=== PATIENT | male | born 1955 | race Caucasian/White ===

== ENCOUNTER 2017-02-27 17:39 | Emergency (ER) | payer MEDICARE ==
[~2017-02-27] VITALS: Ht 182.9 cm; Wt 134.7 kg
[~2017-02-27 17:39] MED LIST: ASPI325T PO; CYCL-36 PO; OXYC-360 PO; Z.0.NO CURRENT MEDS
[2017-02-27 17:48] VITALS: BP 139/90; PULSE 105; RESP 20; TEMP 97.9; O2SAT 97
[2017-02-27] MEDS ORDERED: ASPI-183 PO (18:22)
--- NOTE | 2017-02-27 18:49 | PD ---
HPI Chief Complaint: Lump, Cyst, Hernia Time Seen by Provider: 18:46 Travel History International Travel<30 days: No Contact w/Intl Traveler<30days: No Traveled to known affect area: No History of Present Illness HPI 61-year-old male presents with one year history of lump to his abdomen that has progressively gotten bigger and more painful. He states over the past week the pain has gotten constant and sharp. He states he is scheduled an appointment with his 's physician but they canceled that given the doctor had an issue so he elected to come here today given it was getting unbearable. He denies any concurrent complaints including vomiting, diarrhea, constipation or other concurrent concerns. PFSH Past Medical History Medical History: Denies Significant Hx Diminished Hearing: No Immunizations Current: Yes Tetanus Vaccination: > 5 Years Influenza Vaccination: No Past Surgical History Cholecystectomy: Yes Social History Alcohol Use: No Tobacco Use: Yes (1 ppd) Substance Use: No Allergies-Medications (Allergen,Severity, Reaction): Coded Allergies: No Known Allergies (Verified Adverse Reaction, Unknown, 02/27/17) Reported Meds & Prescriptions Reported Meds & Active Scripts Active Reported Aspirin 325 Mg Tab 325 Mg PO DAILY Review of Systems Except as stated in HPI: all other systems reviewed are Neg Physical Exam Narrative GENERAL: Well-nourished, well-developed patient. Uncomfortable SKIN: Warm and dry. HEAD: Normocephalic and atraumatic. EYES: No injection or drainage. ENT: No nasal drainage noted. NECK: Supple, trachea midline. CARDIOVASCULAR: Regular rate and rhythm RESPIRATORY: No increased effort. No accessory muscle use. GASTROINTESTINAL: Abdomen soft, tender right upper quadrant with what appears to be a incisional hernia but difficult exam given patient discomfort, nondistended. EXTREMITIES: No edema. NEUROLOGICAL: Awake and alert. Motor and sensory grossly within normal limits. Normal speech. Data Data Last Documented VS Vital Signs Date Time Temp Pulse Resp B/P (MAP) Pulse Ox O2 Delivery O2 Flow Rate FiO2 02/27/17 17:48 97.9 105 20 139/90 (106) 97 Orders Orders Complete Blood Count With Diff (02/27/17 18:46) Comprehensive Metabolic Panel (02/27/17 18:46) Lipase (02/27/17 18:46) Ct Abd/Pel W Iv Contrast(Rout) (02/27/17 ) Iv Access Insert/Monitor (02/27/17 18:46) Oximetry (02/27/17 18:46) MDM Medical Decision Making Medical Screen Exam Complete: Yes Emergency Medical Condition: Yes Medical Record Reviewed: Yes (past history reviewed) Differential Diagnosis Hernia, stone, gastritis, mass Narrative Course Will check blood work, CT scan Physician Communication Physician Communication Oncoming physician to follow workup and reevaluate Winnie Reynolds MD Feb 27, 2017 18:49
[2017-02-27 19:00] VITALS: BP 128/77; PULSE 95; RESP 18; O2SAT 95
[2017-02-27 19:12] LABS: WHITE BLOOD COUNT 12.6 TH/MM3 (4.0-11.0)
[2017-02-27 19:13] LABS: AUTOMATED NEUTROPHIL # 7.6 TH/MM3 (1.8-7.7); BASOPHIL # 0.5 TH/MM3 (0-0.2); BASOPHIL % 3.7 % (0.0-2.0); EOSINOPHIL # 0.2 TH/MM3 (0-0.4); EOSINOPHIL % 1.4 % (0.0-4.0); LYMPH % 28.5 % (9.0-44.0); LYMPHOCYTE # 3.6 TH/MM3 (1.0-4.8); MEAN CELL VOLUME 91.3 FL (80.0-100.0); MEAN CORPUSCULAR HEMOGLOBIN 31.2 PG (27.0-34.0); MEAN CORPUSCULAR HGB CONC 34.1 % (32.0-36.0); MONO % 5.9 % (0.0-8.0); NEUT % 60.5 % (16.0-70.0); PLATELET COUNT 293 TH/MM3 (150-450); RED BLOOD COUNT 5.03 MIL/MM3 (4.50-5.90); RED CELL DISTRIBUTION WIDTH 12.8 % (11.6-17.2)
[2017-02-27 19:14] LABS: HEMO FLAGS DIFF FINAL
[2017-02-27 19:23] LABS: CHLORIDE 100 MEQ/L (98-107); POTASSIUM 3.9 MEQ/L (3.5-5.1); SODIUM (NA) 135 MEQ/L (136-145)
[2017-02-27 19:27] LABS: ANION GAP 10 MEQ/L (5-15); BICARBONATE 25.3 MEQ/L (21.0-32.0); BLOOD UREA NITROGEN 11 MG/DL (7-18)
[2017-02-27 19:30] LABS: ALT (GPT) 20 U/L (12-78); AST (GOT) 8 U/L (15-37); GLOMERULAR FILTRATION RATE 104 ML/MIN (>89)
[2017-02-27 19:31] LABS: TOTAL BILIRUBIN ADULT 0.7 MG/DL (0.2-1.0)
[2017-02-27 19:33] LABS: ALKALINE PHOSPHATASE 84 U/L (45-117)
[2017-02-27] MEDS ORDERED: IOHEXOL 350 MG/ML 10 ML VIAL (for RAD DIAG) IVCONTRAST ONE (20:06)
[2017-02-27 20:45] VITALS: BP 119/75; PULSE 97; RESP 18; O2SAT 95
[2017-02-27] MEDS ORDERED: KETOROLAC TROMETHAMINE 30 MG/ML (IVP) VIAL IV PUSH ONE (21:00)
--- NOTE | 2017-02-27 21:08 | PD ---
Physical Exam Date Seen by Provider: Feb 27, 2017 Time Seen by Provider: 20:00 Narrative re exam pt has focal right upper quad area pain no hematoma no bruise or sign of trauma, CT reading pending Data Data Last Documented VS Vital Signs Date Time Temp Pulse Resp B/P (MAP) Pulse Ox O2 Delivery O2 Flow Rate FiO2 02/27/17 21:58 98 18 123/78 (93) 95 02/27/17 20:45 Room Air 02/27/17 17:48 97.9 Orders Orders Complete Blood Count With Diff (02/27/17 18:46) Comprehensive Metabolic Panel (02/27/17 18:46) Lipase (02/27/17 18:46) Ct Abd/Pel W Iv Contrast(Rout) (02/27/17 ) Iv Access Insert/Monitor (02/27/17 18:46) Oximetry (02/27/17 18:46) Iohexol 350 Inj (Omnipaque 350 Inj) (02/27/17 20:06) Ketorolac Inj (Toradol Inj) (02/27/17 21:00) Ed Discharge Order (02/27/17 21:50) Labs Laboratory Tests Test 02/27/17 19:00 White Blood Count 12.6 TH/MM3 Red Blood Count 5.03 MIL/MM3 Hemoglobin 15.7 GM/DL Hematocrit 46.0 % Mean Corpuscular Volume 91.3 FL Mean Corpuscular Hemoglobin 31.2 PG Mean Corpuscular Hemoglobin Concent 34.1 % Red Cell Distribution Width 12.8 % Platelet Count 293 TH/MM3 Mean Platelet Volume 9.0 FL Neutrophils (%) (Auto) 60.5 % Lymphocytes (%) (Auto) 28.5 % Monocytes (%) (Auto) 5.9 % Eosinophils (%) (Auto) 1.4 % Basophils (%) (Auto) 3.7 % Neutrophils # (Auto) 7.6 TH/MM3 Lymphocytes # (Auto) 3.6 TH/MM3 Monocytes # (Auto) 0.7 TH/MM3 Eosinophils # (Auto) 0.2 TH/MM3 Basophils # (Auto) 0.5 TH/MM3 CBC Comment DIFF FINAL Differential Comment Blood Urea Nitrogen 11 MG/DL Creatinine 0.76 MG/DL Random Glucose 265 MG/DL Total Protein 7.5 GM/DL Albumin 3.2 GM/DL Calcium Level 8.8 MG/DL Alkaline Phosphatase 84 U/L Aspartate Amino Transf (AST/SGOT) 8 U/L Alanine Aminotransferase (ALT/SGPT) 20 U/L Total Bilirubin 0.7 MG/DL Sodium Level 135 MEQ/L Potassium Level 3.9 MEQ/L Chloride Level 100 MEQ/L Carbon Dioxide Level 25.3 MEQ/L Anion Gap 10 MEQ/L Estimat Glomerular Filtration Rate 104 ML/MIN Lipase 54 U/L MDM Supervised Visit with SULEMA: No Diagnosis Primary Impression: Abdominal wall bulge Additional Impression: Abdominal wall hernia Patient Instructions: General Instructions, Ventral Hernia (ED) Scripts Ibuprofen (Ibuprofen) 600 Mg Tab 600 MG PO Q6H Y for PAIN, #20 TAB 0 Refills Prov: Gregory Scott MD 02/27/17 Polyethylene Glycol 3350 Powder (Miralax Powder) 17 Gm Powd 17 GM PO DAILY for Constipation, #1 CAN 0 Refills Mix and dissolve one measuring cap-ful (17 grams) in water or juice. Prov: Gregory Scott MD 02/27/17 Disposition: 01 DISCHARGE HOME Condition: Good Gregory Scott MD Feb 27, 2017 21:08
--- NOTE | 2017-02-27 21:36 | RADRPT ---
EXAM DATE/TIME: 02/27/2017 19:56 [facility] COMPARISON: No previous studies available for comparison. INDICATIONS : Right sided abdominal growth for one year causing pain for past few weeks. IV CONTRAST: 95 cc Omnipaque 350 (iohexol) IV ORAL CONTRAST: No oral contrast ingested. RADIATION DOSE: 22.14 CTDIvol (mGy) MEDICAL HISTORY : None SURGICAL HISTORY : Cholecystectomy. Right knee surgery. ENCOUNTER: Initial ACUITY: 3 weeks PAIN SCALE: 7/10 LOCATION: Right abdomen TECHNIQUE: Volumetric scanning of the abdomen and pelvis was performed. Using automated exposure control and adjustment of the mA and/or kV according to patient size, radiation dose was kept as low as reasonably achievable to obtain optimal diagnostic quality images. DICOM format image data is av ailable electronically for review and comparison. FINDINGS: There is mild decreased attenuation in the liver. The patient is status post cholecyst ectomy. The spleen, pancreas, adrenal glands and kidneys are unremarkable. There is right lateral bulging versus a hernia seen at the superior right lateral abdomen just inferi or to the costal margin. The remaining aspects of the anterior abdominal wall appear normal. Signif icant bowel dilatation is not seen. The pelvic structures appear grossly intact. Scattered atherosc lerotic calcifications are seen throughout the arterial system. Old right fib fractures are seen. T here is degenerative change in the lumbar spine. The lung bases are clear. CONCLUSION: 1. Right lateral bulging versus a wide hernia at the right lateral abdomen just inferior to the macdonald l margin. There is no sign of obstruction. 2. Mild hepatic steatosis. Arsenio Jasso MD on February 27, 2017 at 21:21 Board Certified Radiologist. This report was verified electronically.
[2017-02-27] MEDS ORDERED: IBUP-232 PO (21:49)
[2017-02-27] MEDS ORDERED: MIRA3350 PO (21:49)
[2017-02-27 21:58] VITALS: BP 123/78
== END 2017-02-27 22:09 | disposition home or self-care (01) ==
LOC: PHED 17:39
DX: K43.9 Ventral hernia without obstruction or gangrene (principal); F17.200 Nicotine dependence, unspecified, uncomplicated
CPT/HCPCS: 74177; 80053; 83690; 85025; 96374; 99285; J1885; Q9967

== ENCOUNTER 2017-03-28 11:24 | Observation (INO) | payer MEDICARE ==
[~2017-03-28] VITALS: Ht 182.9 cm; Wt 131.8 kg
[~2017-03-28 11:24] MED LIST changes: +ASPI-183 PO; -ASPI325T PO; -CYCL-36 PO; +IBUP-232 PO; +MIRA3350 PO; -OXYC-360 PO; -Z.0.NO CURRENT MEDS
[2017-03-28] MEDS ORDERED: LACTATED RINGER'S 1000 ML IV PRN (12:00)
[2017-03-28] MEDS ORDERED: SODIUM CHLORID 0.9% 500 ML IV PRN (12:00)
[2017-03-28] MEDS ORDERED: POVIDONE IODINE 5% (ANTISEPSIS KIT) 4 APPLICATIONS EACH NARE PRN (12:00)
[2017-03-28] MEDS ORDERED: INSULIN HUMAN REGULAR 1,000 UNITS/10 ML VIAL SQ PRN (12:00)
[2017-03-28] MEDS ORDERED: CHLORHEXIDINE GLUCONATE 2 % 1 PACK (2 CLOTHS) TOPICAL PRN (12:00)
[2017-03-28] MEDS ORDERED: ceFAZolin 1,000 MG/NS 100 ML IV SCH ×2 (12:00)
[2017-03-28] MEDS ORDERED: METOPROLOL TARTRATE 25 MG TAB PO PRN (12:00)
[2017-03-28] MEDS ORDERED: LOVA10TA PO (12:46)
[2017-03-28] MEDS ORDERED: METF500T PO (12:46)
[2017-03-28 13:06] LABS: AUTOMATED NEUTROPHIL # 8.6 TH/MM3 (1.8-7.7); BASOPHIL # 0.1 TH/MM3 (0-0.2); EOSINOPHIL # 0.2 TH/MM3 (0-0.4); EOSINOPHIL % 1.8 % (0.0-4.0); HEMATOCRIT 41.3 % (39.0-51.0); HEMO FLAGS DIFF FINAL; LYMPH % 24.1 % (9.0-44.0); LYMPHOCYTE # 3.1 TH/MM3 (1.0-4.8); MEAN CELL VOLUME 90.5 FL (80.0-100.0); MEAN CORPUSCULAR HEMOGLOBIN 31.2 PG (27.0-34.0); MEAN CORPUSCULAR HGB CONC 34.5 % (32.0-36.0); MONO % 6.3 % (0.0-8.0); NEUT % 66.8 % (16.0-70.0); PLATELET COUNT 317 TH/MM3 (150-450); RED BLOOD COUNT 4.57 MIL/MM3 (4.50-5.90); WHITE BLOOD COUNT 12.8 TH/MM3 (4.0-11.0)
[2017-03-28 13:23] LABS: BICARBONATE 25.7 MEQ/L (21.0-32.0); POTASSIUM 3.5 MEQ/L (3.5-5.1)
[2017-03-28] MEDS ORDERED: BUPIVACAINE LIPOSOME PF 1.3% 20 ML VIAL ONE (14:05)
[2017-03-28] MEDS ORDERED: BUPIVACAINE/EPINEPHRINE 0.25% 50 ML VIAL ONE (14:08)
[2017-03-28] MEDS ORDERED: Post-op Orders (for Pharmacy) XX ONE (15:45)
[2017-03-28] MEDS ORDERED: ZOLPIDEM TARTRATE 5 MG TAB PO PRN (15:45)
[2017-03-28] MEDS ORDERED: ACETAMINOPHEN/HYDROcodone 325 MG/5 MG TAB PO PRN (15:45)
[2017-03-28] MEDS ORDERED: SODIUM CHLORIDE 0.9% FLUSH 10 ML FLUSH IV FLUSH PRN (15:45)
[2017-03-28] MEDS ORDERED: ONDANSETRON HCL 4 MG/2 ML VIAL IV PUSH PRN (15:45)
[2017-03-28] MEDS ORDERED: DO NOT ADM ANY ANTICOAGULANT DRUGS PRN (15:57)
[2017-03-28] MEDS ORDERED: *morphine SULFATE 8 MG/ML PERIprocedure ONLY ONE (15:59)
[2017-03-28] MEDS ORDERED: GLUCAGON 1 MG/ML VIAL OTHER PRN (16:00)
[2017-03-28] MEDS ORDERED: DEXTROSE 50% IN WATER 50 ML VIAL(D50) IV PUSH PRN (16:00)
[2017-03-28] MEDS ORDERED: ACETAMINOPHEN 1000 MG/100 ML 100 ML IV ONE ×2 (16:04→16:15)
[2017-03-28] MEDS ORDERED: MORPHINE SULFATE 8 MG/ML INJ ONE (16:16)
[2017-03-28] MEDS ORDERED: *HYDROmorphone PF 1 MG VIAL PERIprocedural Use ONLY ONE (16:31)
[2017-03-28] MEDS: ACETAMINOPHEN 1000 MG/100 ML 100 ML IV SCH ×2 (17:00→22:28)
[2017-03-28] MEDS: metFORMIN HCL 500 MG TAB PO SCH (18:21)
[2017-03-28] MEDS: INSULIN NovoLIN REGULAR SUPPLEMENTAL SCALE SQ SCH ×2 (18:22→21:00)
[2017-03-28] MEDS: ACETAMINOPHEN/HYDROcodone 325 MG/5 MG TAB PO PRN ×2 (18:26→22:28)
[2017-03-28] MEDS: LACTATED RINGER'S 1000 ML INJ 1,000 ML IV SCH (19:30)
[2017-03-28] MEDS ORDERED: HYDROmorphone HCL PF 2 MG/ML VIAL IV PRN (19:30)
[2017-03-28 20:00] VITALS: BP 102/56; PULSE 86; RESP 16; TEMP 96; O2SAT 96
[2017-03-28] MEDS: SODIUM CHLORIDE 0.9% FLUSH 10 ML FLUSH IV FLUSH SCH (20:05)
[2017-03-29] VITALS: BP 96/55; PULSE 88; RESP 17; TEMP 97.2; O2SAT 94
[2017-03-29 04:00] VITALS: BP 113/58; PULSE 88; RESP 17; TEMP 97.5; O2SAT 91
[2017-03-29] MEDS: ACETAMINOPHEN 1000 MG/100 ML 100 ML IV SCH ×2 (04:43→11:19)
--- NOTE | 2017-03-29 07:44 | MP ---
cc: LINDSAY CORCORAN M.D. DATE OF SURGERY 03/28/2017 PREOPERATIVE DIAGNOSIS Incisional hernia subcostal from previous cholecystectomy. POSTOPERATIVE DIAGNOSIS Incisional hernia with free floating inferior lateral rib. PROCEDURE Primary repair of incisional hernia subcostal incision laterally with reapproximation of the lateral rib with fixation to the fascia. ANESTHESIA General SURGEON Dr. Corcoran SIGNALING PROJECT ENGINEER Heidi Lpoezfanny GONSALES The DEAN OF INSTRUCTION was present from beginning to the end of the case assisting in all portions of the procedure. It was necessary to have this individual in the room to assist in the above surgical procedure. The surgical procedure was assisted by the DEAN OF INSTRUCTION. The DEAN OF INSTRUCTION presence was necessary throughout the case for appropriate retraction, dissection, visualization, and resection of the important anatomical structures during the surgical procedure. The DEAN OF INSTRUCTION was assisting throughout the entirety of the operation. The skill set of the DEAN OF INSTRUCTION is medically and surgically necessary to safely complete the surgical procedure. During the surgical case, the operating room neurosurgical physician assistant was working instrument table and passing instruments to the attending surgeon and DEAN OF INSTRUCTION. The DEAN OF INSTRUCTION was directly assisting the operating surgeon and involved in the technical aspects of the surgical case. INDICATIONS This is a pleasant gentleman who had some pain in his right upper quadrant. CT scan was done and showed an incisional hernia out laterally. Intraoperatively when he was asleep, we could palpate the area better because he was tender. He has somewhat of the displaced most inferior rib that is in the hernia protruding through the hernia. It seems to be quite mobile. Intraoperatively, we were able to place a suture around the fascia around the rib to pull this more medially along the medial aspect of this hernia defect to bring it back into somewhat of an anatomical alignment. PROCEDURE The patient taken to the operating room, placed in the supine position. After anesthesia, his abdomen was prepped with Betadine and when he was asleep, we were able to note that the has a fairly mobile rib inferiorly and I believe this was what was causing him as much discomfort. The hernia defect is a moderate size. He is a large gentleman. We make a lateral incision in the subcostal area, dissect down through the deep subcutaneous tissue identifying the fascial defect. The tip of the rib is protruding through this fascial defect. Again, it is quite mobile. We are able to mobilize the hernia sac underneath the fascia circumferentially And imbricate it upon itself with a 2-0 Vicryl. We then were able to get the anterior abdominal fascia as the rectus muscle is nonexistent and get the two somewhat attenuated fascial layers prior to reapproximating them, I did take a suture along just the tip of the rib and secured it to the medial aspect of the edge of the fascia hernia defect to get the rib in a more anatomical alignment so it would not protruding out through the lateral aspect of his flank. This seemed to hold in place. We then repaired the defect with an interrupted Ethibond suture. Again, the fascia is somewhat attenuated and this was all reapproximated with minimal tension. After this was done, we then closed the deep layer with 3-0 Vicryl and skin was reapproximated with the skin stapling device. The patient tolerated the procedure well and returned to the recovery room with no immediate postop complications. MD ANABELL Galarza/MINDY /3:48 PM /7:30 AM DANNIELLE
[2017-03-29 08:00] VITALS: BP 107/57; PULSE 92; RESP 18; TEMP 98.3; O2SAT 96
[2017-03-29] MEDS: INSULIN NovoLIN REGULAR SUPPLEMENTAL SCALE SQ SCH ×2 (08:00→11:29)
[2017-03-29] MEDS: metFORMIN HCL 500 MG TAB PO SCH (08:45)
[2017-03-29] MEDS: LACTATED RINGER'S 1000 ML INJ 1,000 ML IV SCH (08:45)
[2017-03-29] MEDS: ACETAMINOPHEN/HYDROcodone 325 MG/5 MG TAB PO PRN (08:50)
[2017-03-29] MEDS: SODIUM CHLORIDE 0.9% FLUSH 10 ML FLUSH IV FLUSH SCH (08:51)
[2017-03-29] MEDS ORDERED: PRAVASTATIN SOD 10 MG TAB PO SCH (09:00)
[2017-03-29 09:20] VITALS: O2SAT 93
[2017-03-29 12:00] VITALS: BP 116/62; PULSE 91; RESP 18; TEMP 98.4; O2SAT 92
[2017-03-29] MEDS ORDERED: HYDR-3516 PO (15:39)
--- NOTE | 2017-03-29 15:39 | EKG ---
Date Performed: 03/28/2017 Time Performed: 12:13:14 PTAGE: 61 years EKG: Sinus rhythm WITH FREQUENT SUPRAVENTRICULAR PREMATURE COMPLEXES INFERIOR MYOCARDIAL INFARCTION , PROBABLY OLD ABN ORMAL ECG PREVIOUS TRACING : 07/25/2010 12.52 Since the prior tracing, PACs are new. Patient now has lor r criteria for prior inferior wall infarction. DOCTOR: Bridget Huffman Interpretating Date/Time 03/29/2017 15:39:16
[2017-03-29 16:00] VITALS: BP 125/60; PULSE 103; RESP 20; TEMP 98.4; O2SAT 93
--- NOTE | 2017-03-29 16:26 | HHI.DS ---
Discharge Summary Admission Date Mar 28, 2017 at 15:44 Discharge Date: Mar 29, 2017 Admitting Diagnosis Brief History 61 year male with RUQ abdominal hernia s/p cholecystectomy 30 years ago CBC/BMP: 03/28/17 1240 03/28/17 1240 Significant Findings Laboratory Tests Test 03/28/17 12:40 White Blood Count 12.8 TH/MM3 (4.0-11.0) Neutrophils # (Auto) 8.6 TH/MM3 (1.8-7.7) Random Glucose 199 MG/DL (74-106) PE at Discharge 61-year-old male resting in bed in no acute distress Cardio: RRR Resp: CTAB Abd: incision---dressing changed; norma in place; minimal drainage Hospital Course This is a 61 year male with RUQ abdominal hernia s/p cholecystectomy 30 years ago. The patient was advanced to a regular diet. The patient's pain was controlled using oral pain medications. The patient was able to tolerate being weaned off of nasal cannula oxygen to room air without any complications. He is able to ambulate. The patient will follow-up next as indicated on the discharge information. Pt Condition on Discharge: Good Discharge Disposition: Discharge Home Discharge Instructions DIET: Follow Instructions for: As Tolerated, No Restrictions Activities you can perform: See Additionl Instruction Other Activity Instructions: Okay to shower; pat incision dry No baths Follow up Referrals: Surgical - 04/05/17 with Brennen Corcoran MD Appt set for Apr 05 at 10:40AM New Medications: Hydrocodone/Acetaminophen (Hydrocodone-Acetamin 5-325 mg) 5 Mg-325 Mg Tablet 1 TAB PO Q4H PRN for pain, #25 TAB Continued Medications: Lovastatin (Lovastatin) 10 Mg Tab 10 MG PO DAILY for Cholesterol Management, TAB 0 Refills Metformin (Metformin) 500 Mg Tab 500 MG PO BIDPC for Blood Sugar Management, TAB 0 Refills Heidi Obrien Mar 29, 2017 16:26 Brennen Corcoran MD Mar 29, 2017 20:17
== END 2017-03-29 17:13 | disposition home or self-care (01) ==
LOC: HSDC 11:24 → HSDI 15:44 → N07B 18:10
PROVIDERS: ADMIT Surgery; ATTEND Surgery
DX: K43.2 Incisional hernia without obstruction or gangrene (principal); E11.9 Type 2 diabetes mellitus without complications; R94.31 Abnormal electrocardiogram [ECG] [EKG]; E66.01 Morbid (severe) obesity due to excess calories; Z68.41 Body mass index [BMI] 40.0-44.9, adult; Z90.49 Acquired absence of other specified parts of digestive tract; Z79.84 Long term (current) use of oral hypoglycemic drugs
CPT/HCPCS: 00832; 49560; 80048; 82948; 85025; 93005; 94150; 94620; 96361; 96365; 96366; 96375; C9290; G0378; J0131; J1170; J2270; J7120

== ENCOUNTER 2017-07-28 22:40 | Emergency (ER) | payer MEDICARE ==
[~2017-07-28] VITALS: Ht 185.4 cm; Wt 126.9 kg
[~2017-07-28 22:40] MED LIST changes: -ASPI-183 PO; +HYDR-3516 PO; -IBUP-232 PO; +LOVA10TA PO; +METF500T PO; -MIRA3350 PO
[2017-07-28 22:45] VITALS: BP 172/90; PULSE 99; RESP 20; TEMP 98.5; O2SAT 98
[2017-07-28] MEDS ORDERED: METF500T PO (23:22)
[2017-07-28] MEDS ORDERED: SODIUM CHLORIDE 0.9% FLUSH 10 ML FLUSH IV FLUSH PRN (23:30)
[2017-07-28 23:35] VITALS: O2SAT 98
--- NOTE | 2017-07-28 23:37 | PD ---
HPI Chief Complaint: Pain: Acute or Chronic Time Seen by Provider: 23:22 Travel History International Travel<30 days: No Contact w/Intl Traveler<30days: No Traveled to known affect area: No History of Present Illness HPI The patient is a 61-year-old male that had gallbladder surgery done by the open technique back in the 80s. He has had a lump next to the surgical wound since February of last year. This was apparently an incisional hernia that was repaired by Dr. Corcoran on March of last year. He complains of a persistent and enlarging lump in the same area. He states the lump never went away and is becoming painful. It is not inflamed and he denies any fever, nausea, vomiting or diarrhea. He says the lump is the largest tooth is ever been and is now a 6- 7/10 in pain, a stabbing pain. He denies any fever. PFSH Past Medical History Blood Disorders: No Anxiety: No Depression: No Cancer: No Cardiovascular Problems: No Diabetes: Yes (metformin) Patient Takes Glucophage: Yes (metformin 07/28/17 at 1999) Diminished Hearing: No Endocrine: Yes Gastrointestinal Disorders: Yes (CHOLECYSTECTOMY ) Genitourinary: No Hepatitis: No Hiatal Hernia: No Immune Disorder: No Medical other: Yes (Hernia) Musculoskeletal: Yes (RIGHT KNEE ARTHRITIS, AND SCOPE) Neurologic: No Psychiatric: No Reproductive: No Respiratory: No Immunizations Current: Yes Thyroid Disease: No Tetanus Vaccination: > 5 Years Influenza Vaccination: No ?: Not Past Surgical History Abdominal Surgery: Yes (CHOLECYSTECTOMY ) AICD: No Cardiac Surgery: No Cholecystectomy: Yes Ear Surgery: No Endocrine Surgery: No Eye Surgery: No Genitourinary Surgery: No Joint Replacement: No Oral Surgery: No Pacemaker: No Thoracic Surgery: No Other Surgery: Yes Social History Alcohol Use: No Tobacco Use: Yes (1 ppd) Substance Use: No Allergies-Medications (Allergen,Severity, Reaction): Coded Allergies: No Known Allergies (Verified Allergy, Unknown, 07/28/17) Reported Meds & Prescriptions Reported Meds & Active Scripts Active Percocet (Oxycodone-Acetaminophen) 7.5-325 mg Tab 1 Tab PO Q4H PRN Reported Metformin (Metformin HCl) 500 Mg Tab 500 Mg PO TIDPC Review of Systems Except as stated in HPI: all other systems reviewed are Neg Physical Exam Narrative GENERAL: The patient is alert, oriented 3 in slight apparent distress with his right incisional hernia mass. His vital signs show blood pressure 172/90 and heart rate of 99 but are otherwise normal. SKIN: Focused skin assessment warm/dry. HEAD: Atraumatic. Normocephalic. EYES: Pupils equal and round. No scleral icterus. No injection or drainage. ENT: No nasal bleeding or discharge. Mucous membranes pink and moist. NECK: Trachea midline. No JVD. CARDIOVASCULAR: Regular rate and rhythm. No murmur appreciated. RESPIRATORY: No accessory muscle use. Clear to auscultation. Breath sounds equal bilaterally. GASTROINTESTINAL: Abdomen soft, non-tender, nondistended. Hepatic and splenic margins not palpable. There is a 15 x 10 x 10 cm mass that is nonfluctuant and does not reduce and is tender to the touch directly above the old cholecystectomy incision. There is no erythema overlying this mass. MUSCULOSKELETAL: No obvious deformities. No clubbing. No cyanosis. No edema. NEUROLOGICAL: Awake and alert. No obvious cranial nerve deficits. Motor grossly within normal limits. Normal speech. PSYCHIATRIC: Appropriate mood and affect; insight and judgment normal. Data Data Last Documented VS Vital Signs Date Time Temp Pulse Resp B/P (MAP) Pulse Ox O2 Delivery O2 Flow Rate FiO2 07/29/17 02:32 98.4 99 18 145/90 (108) 99 Room Air Orders Orders Complete Blood Count With Diff (07/28/17 23:22) Comprehensive Metabolic Panel (07/28/17 23:22) Ct Abd/Pel W Iv Contrast(Rout) (07/28/17 23:22) Iv Access Insert/Monitor (07/28/17 23:22) Ecg Monitoring (07/28/17 23:22) Oximetry (07/28/17 23:22) Sodium Chloride 0.9% Flush (Ns Flush) (07/28/17 23:30) Iohexol 350 Inj (Omnipaque 350 Inj) (07/29/17 00:11) Oxycodone-Acetamin 10-325 Mg (Percocet 1 (07/29/17 02:00) Labs Laboratory Tests Test 07/28/17 23:33 White Blood Count 11.9 TH/MM3 Red Blood Count 4.70 MIL/MM3 Hemoglobin 14.0 GM/DL Hematocrit 41.9 % Mean Corpuscular Volume 89.2 FL Mean Corpuscular Hemoglobin 29.9 PG Mean Corpuscular Hemoglobin Concent 33.5 % Red Cell Distribution Width 12.7 % Platelet Count 399 TH/MM3 Mean Platelet Volume 8.4 FL Neutrophils (%) (Auto) 63.4 % Lymphocytes (%) (Auto) 24.9 % Monocytes (%) (Auto) 6.2 % Eosinophils (%) (Auto) 3.0 % Basophils (%) (Auto) 2.5 % Neutrophils # (Auto) 7.5 TH/MM3 Lymphocytes # (Auto) 3.0 TH/MM3 Monocytes # (Auto) 0.7 TH/MM3 Eosinophils # (Auto) 0.4 TH/MM3 Basophils # (Auto) 0.3 TH/MM3 CBC Comment DIFF FINAL Differential Comment Blood Urea Nitrogen 11 MG/DL Creatinine 0.91 MG/DL Random Glucose 122 MG/DL Total Protein 7.8 GM/DL Albumin 3.2 GM/DL Calcium Level 8.5 MG/DL Alkaline Phosphatase 86 U/L Aspartate Amino Transf (AST/SGOT) 13 U/L Alanine Aminotransferase (ALT/SGPT) 16 U/L Total Bilirubin 0.2 MG/DL Sodium Level 139 MEQ/L Potassium Level 3.8 MEQ/L Chloride Level 107 MEQ/L Carbon Dioxide Level 26.4 MEQ/L Anion Gap 6 MEQ/L Estimat Glomerular Filtration Rate 84 ML/MIN MDM Medical Decision Making Medical Screen Exam Complete: Yes Emergency Medical Condition: Yes Medical Record Reviewed: Yes Interpretation(s) The CT abdomen/pelvis with IV contrast shows a seroma measuring 13 X 9 centimeters. Also noted is a defect in the lateral abdominal wall right upper quadrant containing loops of small bowel. Differential Diagnosis Incisional hernia, seroma, hematoma, fibroma, infected seroma/hematoma Narrative Course The patient has a seroma. It is very tight because it was not fluctuant on examination. It is also extremely painful to the patient. There is no evidence of infection. Plan: The patient can have the seroma drained using interventional radiology. I discussed the patient with Dr. Pastor, Silverio Villanueva, Dr. Moore and interventional radiology can drain this. A consult will be put in for special procedures. Apparently, Dr. Shay, the interventional radiologist, will be doing other IR procedures with the patient's coming to the emergency department this morning. The patient is told to go to the emergency department with the consult and hand and see if Dr. Shay can drain him this morning. In the meantime , the patient will be given Percocet 7.5 prescription and Percocet 10 tonight. His will drive him home and return to the emergency department and [facility] at 8 AM this morning. The patient is discharged from [facility] emergency department tonight. Diagnosis Primary Impression: Abdominal wall seroma Additional Instructions: As we discussed, Dr. Shay, the interventional radiologist will be doing procedures at [facility]. The patient's are assembling in the emergency department for these procedures. You should go to the emergency department around 8 AM so that you can be seen by Dr. Shay. The actual procedures will be done in radiology in the specials unit on first floor. Med/Other Pt SpecificInfo: Prescription(s) given Scripts Oxycodone-Acetaminophen (Percocet) 7.5-325 mg Tab 1 TAB PO Q4H Y for PAIN, #15 TAB 0 Refills Prov: Elliot Paniagua MD 07/29/17 Disposition: 01 DISCHARGE HOME Condition: Stable Elliot Paniagua MD Jul 28, 2017 23:37
[2017-07-28 23:40] LABS: AUTOMATED NEUTROPHIL # 7.5 TH/MM3 (1.8-7.7); BASOPHIL # 0.3 TH/MM3 (0-0.2); BASOPHIL % 2.5 % (0.0-2.0); EOSINOPHIL # 0.4 TH/MM3 (0-0.4); HEMATOCRIT 41.9 % (39.0-51.0); LYMPH % 24.9 % (9.0-44.0); MEAN CELL VOLUME 89.2 FL (80.0-100.0); MEAN CORPUSCULAR HEMOGLOBIN 29.9 PG (27.0-34.0); MEAN CORPUSCULAR HGB CONC 33.5 % (32.0-36.0); MEAN PLATELET VOLUME 8.4 FL (7.0-11.0); MONO % 6.2 % (0.0-8.0); MONOCYTE # 0.7 TH/MM3 (0-0.9); NEUT % 63.4 % (16.0-70.0); PLATELET COUNT 399 TH/MM3 (150-450); RED CELL DISTRIBUTION WIDTH 12.7 % (11.6-17.2); WHITE BLOOD COUNT 11.9 TH/MM3 (4.0-11.0)
[2017-07-28 23:46] LABS: CHLORIDE 107 MEQ/L (98-107); SODIUM (NA) 139 MEQ/L (136-145)
[2017-07-28 23:50] LABS: ALBUMIN 3.2 GM/DL (3.4-5.0); BICARBONATE 26.4 MEQ/L (21.0-32.0); BLOOD UREA NITROGEN 11 MG/DL (7-18); CALCIUM 8.5 MG/DL (8.5-10.1); GLUCOSE,RANDOM 122 MG/DL (74-106)
[2017-07-28 23:53] LABS: ALT (GPT) 16 U/L (12-78); AST (GOT) 13 U/L (15-37); CREATININE 0.91 MG/DL (0.60-1.30); GLOMERULAR FILTRATION RATE 84 ML/MIN (>89)
[2017-07-28 23:55] LABS: TOTAL BILIRUBIN ADULT 0.2 MG/DL (0.2-1.0); TOTAL PROTEIN 7.8 GM/DL (6.4-8.2)
[2017-07-28 23:56] LABS: ALKALINE PHOSPHATASE 86 U/L (45-117)
[2017-07-29] MEDS ORDERED: IOHEXOL 350 MG/ML 10 ML VIAL (for RAD DIAG) IVCONTRAST ONE (00:11)
[2017-07-29 00:40] VITALS: BP 112/63; PULSE 93; RESP 18; O2SAT 100
--- NOTE | 2017-07-29 01:03 | RADRPT ---
EXAM DATE/TIME: 07/29/2017 00:05 [facility] COMPARISON: CT ABDOMEN & PELVIS W CONTRAST, February 27, 2017, 19:56. INDICATIONS : Lump on right side of abdomen. Patient had a right side hernia repair in march and states this lum p has been growing since. IV CONTRAST: 95 cc Omnipaque 350 (iohexol) IV ORAL CONTRAST: No oral contrast ingested. RADIATION DOSE: 22.11 CTDIvol (mGy) MEDICAL HISTORY : Diabetes. SURGICAL HISTORY : Cholecystectomy. Hernia repair. ENCOUNTER: Initial ACUITY: 4 - 6 months PAIN SCALE: 10/10 LOCATION: Right abdomen. TECHNIQUE: Volumetric scanning of the abdomen and pelvis was performed. Using automated exposure control and ad justment of the mA and/or kV according to patient size, radiation dose was kept as low as reasonably achievable to obtain optimal diagnostic quality images. DICOM format image data is available electro nically for review and comparison. FINDINGS: Examination of the lung bases demonstrates no abnormality. No pleural fluid is identified. No pulmona ry nodules are present. Multiple old right rib fractures are present. There is a defect in the latera l abdominal wall which is wide containing nonincarcerated loops of small bowel. Inferior to this in a subcutaneous location is a 13 x 9 cm hypodense fluid collection which likely reflects seroma. This i s not contiguous with the small bowel loops. The gallbladder is absent. The pancreas demonstrates nor mal contour without evidence of mass or ductal dilatation. The adrenal glands and kidneys appear norm al bilaterally. No hydronephrosis or mass lesions are identified. Examination of the pelvis demonstrates no evidence of free fluid or pelvic mass. No abnormally enlarg ed inguinal or retroperitoneal lymph nodes are present. The bladder is unremarkable. There is diverti culosis without evidence of diverticulitis. CONCLUSION: 1. Large subcutaneous fluid collection measuring 13 x 9 CM right most characteristic of seroma. 2. Defect in the lateral abdominal wall right upper quadrant containing loops of small bowel. Miguel Pastor MD on July 29, 2017 at 0:53 Board Certified Radiologist. This report was verified electronically.
[2017-07-29] MEDS ORDERED: PERC7.5T13 PO (01:44)
[2017-07-29] MEDS ORDERED: oxyCODONE/ACETAMINOPHEN 10 MG/325 MG TAB PO ONE (02:00)
[2017-07-29 02:32] VITALS: BP 145/90; PULSE 99; RESP 18; TEMP 98.4; O2SAT 99
== END 2017-07-29 03:18 | disposition home or self-care (01) ==
LOC: PHED 22:40
DX: M96.842 Postprocedural seroma of a musculoskeletal structure following a musculoskeletal system procedure (principal); E11.9 Type 2 diabetes mellitus without complications; F17.210 Nicotine dependence, cigarettes, uncomplicated; Z79.84 Long term (current) use of oral hypoglycemic drugs
CPT/HCPCS: 74177; 80053; 85025; 99284; Q9967

== ENCOUNTER 2017-07-29 08:01 | Emergency (ER) | payer MEDICARE ==
[~2017-07-29] VITALS: Ht 185.4 cm; Wt 123.5 kg
[~2017-07-29 08:01] MED LIST changes: -HYDR-3516 PO; -LOVA10TA PO; +PERC7.5T13 PO
[2017-07-29 08:06] VITALS: BP 167/83; PULSE 95; RESP 18; TEMP 97.4; O2SAT 98
--- NOTE | 2017-07-29 08:28 | PD ---
HPI Chief Complaint: Abdominal Pain Time Seen by Provider: 08:12 Travel History International Travel<30 days: No Contact w/Intl Traveler<30days: No Traveled to known affect area: No History of Present Illness HPI The patient is a 61-year-old male who presents to the emergency department for possible interventional radiology drainage of an abdominal wall seroma. The patient had surgery in [address] Corcoran for hernia. The patient did had some swelling of the affected area which has progressed and has become painful. The patient was seen at [facility] last night by Dr. Paniagua, and underwent CT the abdomen and pelvis which revealed a large seroma. The patient was advised to come to the emergency department at 8 AM to have interventional radiology drain the seroma. The patient states he takes no blood thinners. The abdominal pain is located in the right upper quadrant, nonradiating, worse with palpation and movement. He denies any drainage from the affected area. Symptoms are moderate. PFSH Past Medical History Blood Disorders: No Anxiety: No Depression: No Cancer: No Cardiovascular Problems: No Diabetes: Yes Diminished Hearing: No Endocrine: Yes Gastrointestinal Disorders: Yes (CHOLECYSTECTOMY ) Genitourinary: No Hepatitis: No Hiatal Hernia: No Immune Disorder: No Musculoskeletal: Yes (RIGHT KNEE ARTHRITIS, AND SCOPE) Neurologic: No Psychiatric: No Reproductive: No Respiratory: No Immunizations Current: Yes Thyroid Disease: No Past Surgical History Abdominal Surgery: Yes (CHOLECYSTECTOMY ) AICD: No Cardiac Surgery: No Cholecystectomy: Yes Ear Surgery: No Endocrine Surgery: No Eye Surgery: No Genitourinary Surgery: No Joint Replacement: No Oral Surgery: No Pacemaker: No Thoracic Surgery: No Other Surgery: Yes Social History Alcohol Use: No Tobacco Use: Yes (1 ppd) Substance Use: No Allergies-Medications (Allergen,Severity, Reaction): Coded Allergies: No Known Allergies (Verified Allergy, Unknown, 07/28/17) Reported Meds & Prescriptions Reported Meds & Active Scripts Active Percocet (Oxycodone-Acetaminophen) 7.5-325 mg Tab 1 Tab PO Q4H PRN Reported Metformin (Metformin HCl) 500 Mg Tab 500 Mg PO TIDPC Review of Systems Except as stated in HPI: all other systems reviewed are Neg General / Constitutional: No: Fever Cardiovascular: No: Chest Pain or Discomfort Respiratory: No: Shortness of Breath Gastrointestinal: Positive: Abdominal Pain, No: Nausea, Vomiting Physical Exam Narrative GENERAL: Awake, alert, pleasant 61-year-old male who appears his stated age and is in no acute respiratory distress. SKIN: Focused skin assessment warm/dry. HEAD: Atraumatic. Normocephalic. EYES: No injection or drainage. ENT: No nasal bleeding or discharge. Mucous membranes pink and moist. NECK: Trachea midline. No JVD. CARDIOVASCULAR: Regular rate and rhythm. No murmur appreciated. RESPIRATORY: No accessory muscle use. Clear to auscultation. Breath sounds equal bilaterally. GASTROINTESTINAL: Abdomen obese, large circular tender area right upper quadrant just superior to a large right diagonal open cholecystectomy scar. MUSCULOSKELETAL: No obvious deformities. No clubbing. No cyanosis. No edema. NEUROLOGICAL: Awake and alert. No obvious cranial nerve deficits. Motor grossly within normal limits. Normal speech. PSYCHIATRIC: Appropriate mood and affect; insight and judgment normal. Data Data Last Documented VS Vital Signs Date Time Temp Pulse Resp B/P (MAP) Pulse Ox O2 Delivery O2 Flow Rate FiO2 07/29/17 10:26 84 15 125/67 (86) 97 Room Air 07/29/17 08:06 97.4 Orders Orders Complete Blood Count With Diff (07/29/17 08:20) Basic Metabolic Panel (Bmp) (07/29/17 08:20) Act Partial Throm Time (Ptt) (07/29/17 08:20) Prothrombin Time / Inr (Pt) (07/29/17 08:20) Morphine Inj (Morphine Inj) (07/29/17 08:30) Ondansetron Inj (Zofran Inj) (07/29/17 08:30) NPO (07/29/17 08:20) Sodium Chlor 0.9% 1000 Ml Inj (Ns 1000 M (07/29/17 08:30) Invasive Rad Dept Consult (07/29/17 ) Ct Guided Aspiration (07/29/17 ) Fluid Culture And Gram Stain (07/29/17 10:07) Labs Laboratory Tests Test 07/29/17 08:41 White Blood Count 12.6 TH/MM3 Red Blood Count 4.72 MIL/MM3 Hemoglobin 14.4 GM/DL Hematocrit 42.6 % Mean Corpuscular Volume 90.4 FL Mean Corpuscular Hemoglobin 30.5 PG Mean Corpuscular Hemoglobin Concent 33.8 % Red Cell Distribution Width 13.2 % Platelet Count 394 TH/MM3 Mean Platelet Volume 8.7 FL Neutrophils (%) (Auto) 62.1 % Lymphocytes (%) (Auto) 26.3 % Monocytes (%) (Auto) 7.9 % Eosinophils (%) (Auto) 2.8 % Basophils (%) (Auto) 0.9 % Neutrophils # (Auto) 7.8 TH/MM3 Lymphocytes # (Auto) 3.3 TH/MM3 Monocytes # (Auto) 1.0 TH/MM3 Eosinophils # (Auto) 0.4 TH/MM3 Basophils # (Auto) 0.1 TH/MM3 CBC Comment DIFF FINAL Differential Comment Prothrombin Time 9.9 SEC Prothromb Time International Ratio 1.0 RATIO Activated Partial Thromboplast Time 28.4 SEC Blood Urea Nitrogen 10 MG/DL Creatinine 0.77 MG/DL Random Glucose 118 MG/DL Calcium Level 8.9 MG/DL Sodium Level 139 MEQ/L Potassium Level 3.6 MEQ/L Chloride Level 106 MEQ/L Carbon Dioxide Level 24.5 MEQ/L Anion Gap 9 MEQ/L Estimat Glomerular Filtration Rate 102 ML/MIN [facility] Medical Decision Making Medical Screen Exam Complete: Yes Emergency Medical Condition: Yes Medical Record Reviewed: Yes Interpretation(s) Laboratory Tests Test 07/29/17 08:41 White Blood Count 12.6 TH/MM3 Red Blood Count 4.72 MIL/MM3 Hemoglobin 14.4 GM/DL Hematocrit 42.6 % Mean Corpuscular Volume 90.4 FL Mean Corpuscular Hemoglobin 30.5 PG Mean Corpuscular Hemoglobin Concent 33.8 % Red Cell Distribution Width 13.2 % Platelet Count 394 TH/MM3 Mean Platelet Volume 8.7 FL Neutrophils (%) (Auto) 62.1 % Lymphocytes (%) (Auto) 26.3 % Monocytes (%) (Auto) 7.9 % Eosinophils (%) (Auto) 2.8 % Basophils (%) (Auto) 0.9 % Neutrophils # (Auto) 7.8 TH/MM3 Lymphocytes # (Auto) 3.3 TH/MM3 Monocytes # (Auto) 1.0 TH/MM3 Eosinophils # (Auto) 0.4 TH/MM3 Basophils # (Auto) 0.1 TH/MM3 CBC Comment DIFF FINAL Differential Comment Prothrombin Time 9.9 SEC Prothromb Time International Ratio 1.0 RATIO Activated Partial Thromboplast Time 28.4 SEC Blood Urea Nitrogen 10 MG/DL Creatinine 0.77 MG/DL Random Glucose 118 MG/DL Calcium Level 8.9 MG/DL Sodium Level 139 MEQ/L Potassium Level 3.6 MEQ/L Chloride Level 106 MEQ/L Carbon Dioxide Level 24.5 MEQ/L Anion Gap 9 MEQ/L Estimat Glomerular Filtration Rate 102 ML/MIN Differential Diagnosis Differential diagnosis includes seroma, hematoma, postoperative abscess, hernia. Narrative Course IV was established, labs are drawn and sent, and the patient was placed on cardiac telemetry monitoring and continuous pulse oximetry monitoring. Patient was administered morphine, Zofran, placed on IV maintenance fluids. The patient was kept n.p.o. I called CT who states that the interventional radiology physician is in house, therefore, a formal consult was placed to IR for drainage of the seroma. The CT of the abdomen and pelvis was performed last night. White count was minimally elevated, otherwise labs are unremarkable. The patient is medically cleared to go to interventional radiology/CT for drainage by the interventional radiologist. The patient went to interventional radiology and they removed 200 cc of serous fluid. Gram strain was sent, however, patient has no fever and the seroma collection has been present for some time, I doubt abscess. Diagnosis Primary Impression: Abdominal wall seroma Qualified Codes: T88.8XXD - Other specified complications of surgical and medical care, not elsewhere classified, subsequent encounter; T79.2XXD - Traumatic secondary and recurrent hemorrhage and seroma, subsequent encounter Patient Instructions: General Instructions Additional Instructions: Wound care instructions. Follow-up with your primary physician. Return if symptoms worsen or progress. Med/Other Pt SpecificInfo: No Change to Meds Disposition: 01 DISCHARGE HOME Condition: Stable Terrell Tesfaye MD Jul 29, 2017 08:27
[2017-07-29] MEDS ORDERED: ONDANSETRON HCL 4 MG/2 ML VIAL IV PUSH ONE (08:30)
[2017-07-29] MEDS ORDERED: SODIUM CHLOR 0.9% 1000 ML INJ 1,000 ML IV SCH (08:30)
[2017-07-29] MEDS ORDERED: MORPHINE SULFATE 4 MG/ML INJ IV PUSH ONE (08:30)
[2017-07-29 09:00] LABS: AUTOMATED NEUTROPHIL # 7.8 TH/MM3 (1.8-7.7); BASOPHIL # 0.1 TH/MM3 (0-0.2); BASOPHIL % 0.9 % (0.0-2.0); EOSINOPHIL # 0.4 TH/MM3 (0-0.4); EOSINOPHIL % 2.8 % (0.0-4.0); HEMATOCRIT 42.6 % (39.0-51.0); HEMOGLOBIN 14.4 GM/DL (13.0-17.0); LYMPH % 26.3 % (9.0-44.0); LYMPHOCYTE # 3.3 TH/MM3 (1.0-4.8); MEAN CELL VOLUME 90.4 FL (80.0-100.0); MEAN CORPUSCULAR HEMOGLOBIN 30.5 PG (27.0-34.0); MEAN CORPUSCULAR HGB CONC 33.8 % (32.0-36.0); MEAN PLATELET VOLUME 8.7 FL (7.0-11.0); MONO % 7.9 % (0.0-8.0); NEUT % 62.1 % (16.0-70.0); PLATELET COUNT 394 TH/MM3 (150-450); RED BLOOD COUNT 4.72 MIL/MM3 (4.50-5.90); RED CELL DISTRIBUTION WIDTH 13.2 % (11.6-17.2); WHITE BLOOD COUNT 12.6 TH/MM3 (4.0-11.0)
[2017-07-29 09:09] LABS: PROTHROMBIN TIME - PATIENT 9.9 SEC (9.8-11.6)
[2017-07-29 09:14] LABS: BICARBONATE 24.5 MEQ/L (21.0-32.0); CALCIUM 8.9 MG/DL (8.5-10.1); CREATININE 0.77 MG/DL (0.60-1.30)
[2017-07-29 10:26] VITALS: BP 125/67; PULSE 84; RESP 15; O2SAT 97
[2017-07-29] MEDS ORDERED: LIDOCAINE HCL 1% 20 ML VIAL ONE (10:40)
--- NOTE | 2017-07-30 07:52 | RADRPT ---
EXAM DATE/TIME: 07/29/2017 10:00 [facility] COMPARISON: No previous studies available for comparison. INDICATIONS : 61 year-old male with suspected postsurgical seroma. Image guided aspiration has been requested. DEVICE(S): 1.) 18 Fr Bautista blunt needle Total volume of 200 cc of dark red fluid was removed. Fluid was sent for laboratory ordered studies. MEDICAL HISTORY : Diabetes SURGICAL HISTORY : Cholecystectomy. Hernia repair ENCOUNTER: Initial ACUITY: 4 - 6 days PAIN SCORE: 6/10 LOCATION: Right Abdomen PROCEDURE: PROCEDURE : CT guided aspiration of right lower quadrant anterior abdominal fluid collection The risks, benefits and alternatives to the procedure were explained and verbal and written consent w as obtained. Using automated exposure control and adjustment of the mA and/or kV according to patien t size, radiation dose was kept as low as reasonably achievable to obtain optimal diagnostic quality images. The site was prepped in sterile fashion. Full sterile technique was used, including cap, ma sk, sterile gloves and gown and a large sterile sheet. Hand hygiene and 2% chlorhexidine and/or beta dine/alcohol prep was utilized per protocol for cutaneous antisepsis. The skin and subcutaneous tiss ues were infiltrated with local anesthetic solution. DICOM format image data is available electronic ally for review and comparison. 18 gauge Bautista needle was advanced into the fluid collection under CT guidance. Approximately 200 c c of very dark serosanguineous fluid was removed. No additional fluid could be removed. Needle was th en withdrawn. Followup CT examination demonstrated small to moderate residual collection. CONCLUSION: Uncomplicated CT-guided aspiration of right lower quadrant anterior abdominal wall fluid collection. 200 mL of very dark serosanguineous fluid was removed with small to moderate residual collection foll owing aspiration. Karlo Huynh MD on July 30, 2017 at 7:46 Board Certified Radiologist. This report was verified electronically.
== END 2017-07-29 11:16 | disposition home or self-care (01) ==
LOC: NEPC 08:01
DX: K91.873 Postprocedural seroma of a digestive system organ or structure following other procedure (principal); M17.11 Unilateral primary osteoarthritis, right knee; E11.9 Type 2 diabetes mellitus without complications; F17.200 Nicotine dependence, unspecified, uncomplicated
CPT/HCPCS: 10160; 77012; 80048; 85025; 85610; 85730; 87070; 96361; 96374; 96375; 99284; J2270; J2405; J7030